=== PATIENT | male | born 1990 | race Two or more races ===

== ENCOUNTER 2019-01-27 18:14 | Emergency (ER) | payer OTHER ==
[~2019-01-27] VITALS: Ht 170.2 cm; Wt 104.3 kg
--- NOTE | 2019-01-27 18:25 | NUR ---
ED Nurse Note: pt walked in c/o low back pain, pt reports he was lifting something heavy at work and started to have pain. cms intact, ambulatory w/ steady gait, will cont monitor.
[2019-01-27 18:56] VITALS: BP 156/90
[2019-01-27] MEDS ORDERED: Ketorolac 30mg Inj IM ONE (19:00)
[2019-01-27] MEDS ORDERED: Acetaminophen 500mg (ES) tab ORAL ONE (19:00)
--- NOTE | 2019-01-27 19:01 | Emergency Room Report ---
History of Present Illness General Chief Complaint: Lower Back Pain or Injury Source: Patient Present Illness HPI 28-year-old male presents to the emergency department complaining of 9 out of 10 severity acute onset left-sided low back pain as well as right shoulder pain status post attempting to lift a heavy vehicle while at work. 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 Patient reports that he felt a pop and had acute onset he states that he has had a previous disc herniation somewhere in the spine but he states that his pain is to the left side of his back and denies midline spinal pain or tenderness. He is also stating that he is noticing some clicking in the right shoulder with range of motion. Patient denies previous injury to the right upper extremity and states he did not have clicking prior to injury at work. He denies any other appreciable trauma or fall. Denies numbness tingling or loss of sensation or gross motor movements of the extremities, incontinence of bowel or bladder. Denies CP, Palpitations, LOC , AMS, dizziness, Changes in Vision, weakness or a sudden severe headache. Allergies: Coded Allergies: No Known Allergies (Unverified , 01/27/19) Patient History Past Medical History: see triage record Past Surgical History: none Pertinent Family History: none Reviewed Nursing Documentation: PMH: Agreed; PSxH: Agreed Nursing Documentation-PMH Past Medical History: No Stated History Review of Systems All Other Systems: negative except mentioned in HPI Physical Exam Vital Signs Date Time Temp Pulse Resp B/P (MAP) Pulse Ox O2 Delivery O2 Flow Rate FiO2 01/27/19 18:24 98.1 80 16 156/90 (112) 98 Room Air Sp02 EP Interpretation: reviewed, normal General Appearance: no apparent distress, alert, GCS 15, non-toxic Head: normocephalic, atraumatic Eyes: bilateral eye normal inspection, bilateral eye PERRL ENT: hearing grossly normal, normal voice Neck: full range of motion Respiratory: lungs clear, normal breath sounds, speaking full sentences Cardiovascular #1: regular rate, rhythm Musculoskeletal: gait/station normal, normal range of motion, tender - TTP to the left paraspinal musculature of the lumbar area, no midline spinous process ttp, no step-offs or obvious deformities. Pain with twisting of torso or bending forward. pt. ambulatory. TTP to the anterior right shoulder with deep palpation, no step-off/divit. FROM with some intermittent click palpated. NVI. Able to perform lift-off Neurologic: alert, oriented x3, responsive, motor strength/tone normal, sensory intact, normal gait, speech normal, grossly normal Psychiatric: judgement/insight normal Skin: normal color, no rash, warm/dry, well hydrated Medical Decision Making PA Attestation Dr. Chery is my supervising Physician whom patient management has been discussed with. Diagnostic Impression: Primary Impression: Low back strain Qualified Codes: S39.012A - Strain of muscle, fascia and tendon of lower back , initial encounter Additional Impressions: Soft tissue injury of right shoulder Qualified Codes: S49.91XA - Unspecified injury of right shoulder and upper arm , initial encounter Back pain Qualified Codes: M54.5 - Low back pain ER Course 28-year-old male presents to the emergency department complaining of 9 out of 10 severity acute onset left-sided low back pain as well as right shoulder pain status post attempting to lift a heavy vehicle while at work. 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 Patient reports that he felt a pop and had acute onset he states that he has had a previous disc herniation somewhere in the spine but he states that his pain is to the left side of his back and denies midline spinal pain or tenderness. He is also stating that he is noticing some clicking in the right shoulder with range of motion. Patient denies previous injury to the right upper extremity and states he did not have clicking prior to injury at work. He denies any other appreciable trauma or fall. Denies numbness tingling or loss of sensation or gross motor movements of the extremities, incontinence of bowel or bladder. Denies CP, Palpitations, LOC , AMS, dizziness, Changes in Vision, weakness or a sudden severe headache. Ddx considered but are not limited to Fracture, dislocation, contusion, Sprain/ Strain/Spasm, rotator cuff or labrum injury. Vital signs: are WNL, pt. is afebrile H&PE are most consistent with musculoskeletal injury will perform imaging to r/ o fractures/dislocations of the right shoulder, no suspicion for fracture of the spine. ORDERS: - X-ray Right Shoulder 3 views - negative for fx, Dislocation, or significant soft tissue injury, per preliminary read in ED, and signed by MADDY Varma, my supervising physician has reviewed, and agrees with my interpretation. ED INTERVENTIONS: - Lidoderm TP -Tylenol 1 g -Toradol IM DISCHARGE: At this time pt. is stable for d/c to home. Will provide printed patient care instructions, and any necessary prescriptions. Care plan and follow up instructions have been discussed with the patient prior to discharge. Other X-Ray Diagnostic Results Other X-Ray Diagnostic Results : X-Ray ordered: Right Shoulder # of Views/Limited Vs Complete: 3 View Indication: Pain EP Interpretation: Yes MADDY Xray: Interpretation reviewed, by supervising MD, and agrees with findings. Interpretation: no dislocation, no soft tissue swelling, no fractures Impression: No acute disease Electronically Signed by: Dolores Varma PA-C Last Vital Signs Date Time Temp Pulse Resp B/P (MAP) Pulse Ox O2 Delivery O2 Flow Rate FiO2 01/27/19 18:56 98.1 89 16 156/90 98 Room Air Status: improved Disposition: HOME, SELF-CARE Condition: Stable Scripts Carisoprodol* (SOMA*) 350 Mg Tablet 350 MG PO ONCE, #1 TAB Take 1 "Soma/carisoprodol" tonight at bedtime. Then start taking "Robaxin/methocarbamol" for maintenance starting tomorrow, do not take both medications at the same time. Prov: Dolores Varma 01/27/19 Lidocaine (Lidoderm) 1 Each Adh..patch 1 PATCH TOPIC DAILY, #30 PATCH 0 Refills Patch(es) may remain in place for up to 12 hours in any 24-hour period. Prov: Dolores Varma 01/27/19 Ibuprofen* (MOTRIN*) 600 Mg Tablet 600 MG ORAL THREE TIMES A DAY, #30 TAB 0 Refills Prov: Dolores Varma 01/27/19 Methocarbamol* (ROBAXIN-750*) 750 Mg Tablet 750 MG PO QID for 7 Days, #28 TAB 0 Refills Prov: Dolores Varma 01/27/19 Departure Forms: Return to Work Return to Work Date: Jan 31, 2019 Work Restrictions: None, No Heavy Lifting Other Restrictions: light duty. May return Sooner if Symptoms have resolved. Return to Full Activity: Feb 03, 2019 Patient Instructions: Back Pain, Adult, Lumbosacral Strain, Shoulder Pain, Easy -to-Read Additional Instructions: Take medications as directed. Follow up with a Primary Care Provider in 3-5 days, even if your symptoms have resolved. --Please review list of primary care clinics, if you do not already have a primary care provider Return sooner to ED if new symptoms occur, or current symptoms become worse. Do not drink alcohol, drive, or operate heavy machinery while taking Robaxin ( Muscle Relaxers) as this may cause drowsiness. - Please note that this Emergency Department Report was dictated using [employer] support agent technology software, occasionally this can lead to erroneous entry secondary to interpretation by the dictation equipment. Dolores Varma Jan 27, 2019 19:00
--- NOTE | 2019-01-27 19:05 | NUR ---
ED Nurse Note: report given to RN Tawny and endorsed care. resp even and unlabored on RA, vss.
[2019-01-27] MEDS ORDERED: IBUPROFEN600 MG ORAL (19:38)
[2019-01-27] MEDS ORDERED: LIDODERM700 M1 TOPIC (19:38)
[2019-01-27] MEDS ORDERED: ROBAXIN-750750 MG PO (19:38)
[2019-01-27] MEDS ORDERED: SOMA350 MG PO (19:45)
--- NOTE | 2019-01-27 19:45 | Diagnostic Imaging Report ---
EXAM: XR Right Shoulder Complete, 2 or More Views CLINICAL HISTORY: PAIN TECHNIQUE: Two or more views of the right shoulder. COMPARISON: No relevant prior studies available. FINDINGS: Bones/joints: No acute fracture. Soft tissues: No radiodense foreign body. IMPRESSION: No fracture or dislocation.
[2019-01-27 19:50] VITALS: BP 149/83
--- NOTE | 2019-01-27 20:00 | NUR ---
ED Nurse Note: PT BEING D/C TO HOME, SAT AND EXPLAINED D/C INSTRUCTIONS AND F/U INFO WITH PT, PT ALSO STATES INJURY HAPPEND AT WORK, PT ALSO GIVEN PRESCRIPTION, REVIEWED PROPER MEDICATION ADMINISTRATION AND S/S TO MONITOR FOR, PT REMAINS WITH PAIN AT 5/10, AMBULATING SLOWLY BUT STEADY, DENIES ANY OTHER INJURIES OR COMPLAINTS, PT ARMBAND REMOVED, PT D/C TO HOME VIA PRIVATE VEHICLE.
[2019-01-27 20:10] VITALS: BP 149/83
== END 2019-01-27 20:05 | disposition home or self-care (01) ==
LOC: EMR 20:00
DX: S39.012A Strain of muscle, fascia and tendon of lower back, initial encounter (principal); S49.91XA Unspecified injury of right shoulder and upper arm, initial encounter; X50.0XXA Overexertion from strenuous movement or load, initial encounter; Y92.89 Other specified places as the place of occurrence of the external cause; Y99.0 Civilian activity done for income or pay
CPT/HCPCS: 73030; 96372; 99283; J1885